=== PATIENT | female | born 1965 | race Caucasian/White ===

== ENCOUNTER 2017-12-13 10:44 | Emergency (ER) | payer OTHER ==
--- NOTE | 2017-12-13 11:56 | ED ---
General Adult HPI - General Chief complaint: Extremity Injury, Lower Stated complaint: POSS BLOOD CLOT RT LEG Time Seen by Provider: 12/13/17 11:05 Source: patient, RN notes reviewed, old records reviewed Mode of arrival: wheelchair Limitations: no limitations - History of Present Illness Initial comments: This is a 52-year-old female to the ER for evaluation. The patient comes in for evaluation of right calf pain right leg pain. Patient's medical history is calm. Regarding this event. She states she was at a wedding last week and during that time she was doing some festivities running and she fell and she had pain in her leg. Since then patient did take about a 4 day trip cross- country back: She was in [place] when this happened. Patient states increased swelling and increased pain in that right lower extremity. Patient is able to bear weight denies any bony pain, no history of blood clots. Patient was seen by family doctor and sent to ER for evaluation regarding possible blood clot. Patient does state that she has full range of motion of ankle - Related Data Home Medications Medication Instructions Recorded Confirmed Multivitamin/Iron/Folic Acid 1 tab PO HS 12/26/14 12/13/17 [Centrum Complete Multivit Tab] Allergies Allergy/AdvReac Type Severity Reaction Status Date / Time adhesive tape Allergy Rash/Hives Verified 12/13/17 11:14 latex AdvReac Rash/Hives Verified 12/13/17 11:14 Review of Systems ROS Statement: Those systems with pertinent positive or pertinent negative responses have been documented in the HPI. ROS Other: All systems not noted in ROS Statement are negative. Past Medical History Past Medical History: Asthma, Myocardial Infarction ([place]) Additional Past Medical History / Comment(s): see Dr Aguilar H&P Last Myocardial Infarction Date:: 12-29-14 History of Any Multi-Drug Resistant Organisms: None Reported Past Surgical History: Cardiac Ablation, Heart Catheterization, Hysterectomy, Tubal Ligation Additional Past Surgical History / Comment(s): laparoscopy Past Anesthesia/Blood Transfusion Reactions: Previous Problems w/ Anesthesia, Motion Sickness, Postoperative Nausea & Vomiting (PONV) Additional Past Anesthesia/Blood Transfusion Reaction / Comment(s): diff waking up Past Psychological History: No Psychological Hx Reported Smoking Status: Never smoker Past Alcohol Use History: Occasional Past Drug Use History: None Reported - Past Family History Mother Family Medical History: Skin Disorder Additional Family Medical History / Comment(s): shingles Father Family Medical History: Cancer Additional Family Medical History / Comment(s): lung cancer General Exam Limitations: no limitations General appearance: alert, in no apparent distress Head exam: Present: atraumatic, normocephalic, normal inspection Eye exam: Present: normal appearance, PERRL, EOMI. Absent: scleral icterus, conjunctival injection, periorbital swelling ENT exam: Present: normal exam, mucous membranes moist Neck exam: Present: normal inspection. Absent: tenderness, meningismus, lymphadenopathy Respiratory exam: Present: normal lung sounds bilaterally. Absent: respiratory distress, wheezes, rales, rhonchi, stridor Cardiovascular Exam: Present: regular rate, normal rhythm, normal heart sounds. Absent: systolic murmur, diastolic murmur, rubs, gallop, clicks GI/Abdominal exam: Present: soft, normal bowel sounds. Absent: distended, tenderness, guarding, rebound, rigid Extremities exam: Present: normal inspection, full ROM, normal capillary refill. Absent: tenderness, pedal edema, joint swelling, calf tenderness Back exam: Present: normal inspection Neurological exam: Present: alert, oriented X3, CN II-XII intact Psychiatric exam: Present: normal affect, normal mood Skin exam: Present: warm, dry, intact, normal color. Absent: rash Course Vital Signs 12/13/17 11:01 Temperature 98.1 F Pulse Rate 88 Respiratory 18 Rate Blood Pressure 131/73 O2 Sat by Pulse 100 Oximetry Medical Decision Making - Medical Decision Making 52 female the ER with right leg pain, positive hematoma, no DVT. No erythema to suggest abscess. Patient will be discharged home - Radiology Data Radiology results: report reviewed (NEGATIVE FOR DVT LIKELY HEMATOMA), image reviewed Disposition Clinical Impression: Hematoma of right lower extremity Disposition: HOME SELF-CARE Condition: Good Instructions: Hematoma (ED) Referrals: Adriana Keita MD [Primary Care Provider] - 1-2 days
--- NOTE | 2017-12-13 12:33 | US ---
EXAMINATION TYPE: US venous doppler duplex LE RT DATE OF EXAM: 12/13/2017 12:22 PM COMPARISON: NONE CLINICAL HISTORY: Pain. Patient went for a run about 5 days ago, felt like she tore a muscle in her r ight calf. She then traveled in an RV for 4 days from [place] to [place]. Bruising and pain in the r ight calf today. SIDE PERFORMED: Right TECHNIQUE: The lower extremity deep venous system is examined utilizing real time linear array sonog jose with graded compression, doppler sonography and color-flow sonography. VESSELS IMAGED: External Iliac Vein (EIV) Common Femoral Vein Deep Femoral Vein Greater Saphenous Vein * Femoral Vein Popliteal Vein Small Saphenous Vein * Proximal Calf Veins (* superficial vessels) Right Leg: Negative for DVT. In the area of the right calf bruising, there is a hypoechoic area visualized measuring 0.6 x 0.3 x 0 .4 cm Grayscale, color doppler, spectral doppler imaging performed of the deep veins of the right lower ext remity. There is normal flow, compressibility, vascular waveforms. IMPRESSION: No ultrasound evidence for acute DVT in the right lower extremity. There is 6 mm oval focus in the anterior aspect of the right calf muscle at area of bruising could reflect tiny resolvin g hematoma.
[2017-12-13 13:10] VITALS: BP 110/57; PULSE 61; RESP 15; TEMP 98.3
== END 2017-12-13 13:05 | disposition home or self-care (01) ==
LOC: EC 10:44
DX: S80.11XA Contusion of right lower leg, initial encounter (principal); I25.2 Old myocardial infarction; Z91.048 Other nonmedicinal substance allergy status; Z91.040 Latex allergy status; Z95.9 Presence of cardiac and vascular implant and graft, unspecified; W19.XXXA Unspecified fall, initial encounter; Y92.89 Other specified places as the place of occurrence of the external cause; Y93.02 Activity, running
CPT/HCPCS: 99284